=== PATIENT | female | born 1985 | race Caucasian/White ===

== ENCOUNTER → 2021-11-19 | Outpatient (CLI) | payer BC, OTHER ==
[~2021-11-19] MED LIST: ASPIRIN 81M81 MG/TA2 PO; DICLEGIS PO; MACROBID 1100 MG/CAP PO; PRENATAL TABLET PO
== END ==
LOC: COL.RAD 11:25
DX: O26.893 Other specified pregnancy related conditions, third trimester (principal); R10.9 Unspecified abdominal pain; Z3A.36 36 weeks gestation of pregnancy

== ENCOUNTER 2021-11-23 13:28 | Outpatient (CLI) | payer BC, OTHER ==
[~2021-11-23] VITALS: Ht 170.2 cm; Wt 97.3 kg
--- NOTE | 2021-11-23 13:35 | NUR ---
PT TO UNIT C/O DECREASED MOVEMENT. APPEARS ANXIOUS AND TEARFUL. ALSO STATES SHE IS CURRENTLY DOING A "24 HOUR URINE" TO ADDRESS HIGH BLOOD PRESSURE LATELY. EFM TRACING CATEGORY 1 STRIP WITH ACCELERATIONS NOTED. NO DECELERATIONS NOTED. FHR BASELINE 150'S. VITAL SIGNS STABLE. PT DENIES LEAKING OF FLUID OR CONTRACTIONS. SEE PHYS NOTIFICATION.
[2021-11-23 14:10] VITALS: BP 147/84; PULSE 96; TEMP 98.2
== END 2021-11-23 14:15 | disposition home or self-care (01) ==
LOC: LDRO 13:28 → LDR 13:40 → LDRO 14:15
DX: O36.8130 Decreased fetal movements, third trimester, not applicable or unspecified (principal); Z3A.36 36 weeks gestation of pregnancy

== ENCOUNTER 2021-11-24 13:23 | Outpatient (CLI) | payer BC, OTHER ==
[~2021-11-24] VITALS: Ht 170.2 cm; Wt 102.3 kg
[2021-11-24 13:30] VITALS: BP 128/97; PULSE 124; TEMP 98.1
[2021-11-24 14:10] VITALS: BP 117/59; PULSE 83
--- NOTE | 2021-11-24 14:16 | NUR ---
1329 PATIENT HERE FOR COMPLAINTS OF HEADACHE AND FEELING BAD. EFM ON FHT 145 BABY VERY ACTIVE. NO CONTRACTIONS. BP 128/97 WAS JUST AT OFFICE THIS MORNING. LABS DONE THIS AM. PATIENT RESTS ON LEFT SIDE. 1340 BP 114/74 1345 BP 111/64
--- NOTE | 2021-11-24 14:23 | NUR ---
1410 BP 117/[address] WINSTON CALLED AND UPDATED. ALL BP CALLED. ORDERS TO DISMISS TO HOME TO FOLLOW UP WITH DR. MIMS. VERBAL UNDERSTANDING NOTED.
[2021-11-25] MEDS ORDERED: NORMODYNE100 MG PO (11:48)
[2021-11-25] MEDS ORDERED: TYLENOL 500MG500 MG PO (11:50)
== END 2021-11-24 14:15 | disposition home or self-care (01) ==
LOC: LDRO 13:23 → LDR 13:40 → LDRO 14:15
DX: O62.9 Abnormality of forces of labor, unspecified (principal); Z3A.37 37 weeks gestation of pregnancy
CPT/HCPCS: OP

== ENCOUNTER 2021-11-25 11:22 | Outpatient (CLI) | payer BC, OTHER ==
[2021-11-25] VITALS (7 sets, daily range): BP systolic 112–141; BP diastolic 72–89; PULSE 75–120; TEMP 97.1
[~2021-11-25] VITALS: Ht 170.2 cm; Wt 102.3 kg
--- NOTE | 2021-11-25 11:30 | NUR ---
1130-Patient to L&D with complaints of elevated BP through the night 150/96 and 147/56 at 1100 this AM. Reports "mild" headach rates 5/10 and has treated with 500mg Tylenol. Reports "wavy" vision this AM and swelling to hands and feet "about the same in feet but hands are more sore from swelling from elbows down." +2 edema assessed in feet no obvious swelling in hands per this RN. Assessment complete. VSS BP on admission 138/89 and at 1150 125/73. 1200-Dr. Cardenas on unit for [facility]. Notified of patients arrival and orders to monitor BP's and baby for now.
[2021-11-25] MEDS ORDERED: NORMODYNE100 MG PO (11:48)
[2021-11-25] MEDS ORDERED: TYLENOL 500MG500 MG PO (11:50)
--- NOTE | 2021-11-25 12:15 | NUR ---
1215-300ml Clear emesis, Patient reports " this is normal for me. I am nauseated daily with emesis every other day throughout ."
--- NOTE | 2021-11-25 13:30 | NUR ---
1330-Reviwed BP and all labs in office 11/24/[address] Cardenas. Reactive FHR. Orders from MD patient may DC home with instructions to keep apt for follow up in offifce in AM. Tovat off EFM. 1345-Reviewed discharge instructions with patient. Ambulatory off Unit.
== END 2021-11-25 13:45 | disposition home or self-care (01) ==
LOC: LDRO 11:22 → LDR 11:30 → LDRO 13:45
DX: Z34.93 Encounter for supervision of normal pregnancy, unspecified, third trimester (principal); Z3A.37 37 weeks gestation of pregnancy

== ENCOUNTER 2021-11-26 13:51 | Inpatient (IN) | payer BC, OTHER ==
[~2021-11-26] VITALS: Ht 170.2 cm; Wt 102.9 kg
[2021-11-26] VITALS (8 sets, daily range): BP systolic 105–142; BP diastolic 59–76; PULSE 80–95; TEMP 97.5–98.1
[~2021-11-26 13:51] MED LIST changes: +NORMODYNE100 MG PO; +TYLENOL 500MG500 MG PO
--- NOTE | 2021-11-26 15:20 | NUR ---
PT AMBULATORY TO UNIT FOR SCHEDULE PRIMARY CSECTION. PT DENIES LEAKING OF FLUID, DENIES CONTRACTIONS, AND REPORTS POSITIVE MOVEMENT. PLACED ON EFM/TOCO UPON ARRIVAL. TRACING CATEGORY 1 STRIP WITH ACCELERATIONS AND NO DECELERATIONS NOTED. FHR BASELINE 135. PT'S VITAL SIGNS STABLE. EDUCATED ON PLAN OF CARE. CONSENTS SIGNED. IV TO LEFT HAND WITH LR INFUSING PER PROTOCOL. PT DENIES FURTHER QUESTIONS OR CONCERNS UPON ADMISSION ASSESSMENT AND CSECTION PREPARATION.
[2021-11-26 16:07] LABS: BASO % 0.1 % (0.0-2.0); EOS # 0.1 K/mm3 (0.0-0.7); EOS % 0.9 % (0.0-4.0); GRAN # 6.1 K/mm3 (1.4-6.5); HEMOGLOBIN 12.5 g/dl (12.5-16.0); LYMPH # 1.9 K/mm3 (1.2-3.4); LYMPH % 21.6 % (20.0-51.0); MEAN CELL VOLUME 91 fl (80.0-100.0); MEAN CORPUSCULAR HEMOGLOBIN 32 pg (27-31); MEAN CORPUSCULAR HGB CONC 35 g/dl (33.0-37.0); MEAN PLATELET VOLUME 12.6 fl (7.4-10.4); MONO # 0.6 K/mm3 (0.1-0.6); MONO % 7.1 % (1.7-9.3); PLATELET COUNT 128 K/mm3 (130-400); RED BLOOD COUNT 3.92 M/mm3 (4.10-5.30); REDCELL DISTRIBUTION WIDTH-CV 13.2 % (11.5-14.5)
[2021-11-26 16:11] LABS: HEMATOCRIT 35.5 % (37.0-47.0)
--- NOTE | 2021-11-26 17:55 | NUR ---
PT TO PACU FOLLOWING PRIMARY SECTION DELIVERY OF VIABLE FEMALE PER / ASSIST AT THIS TIME. EBL 400CC DURING SURGERY. LOCHIA SCANT AT THIS TIME WITH NO CLOTS NOTED. FUNDUS FIRM AT UMBILICUS. MAMI CARE PROVIDED. VITAL SIGNS STABLE. PT ALERT AND TALKATIVE. DENIES PAINS OR NEEDS AT THIS TIME. 1825: PT TO [facility] IN STABLE CONDITION AT THIS TIME. LOCHIA REMAINS SCANT, FUNDUS FIRM AT UMBILICUS, AND VITAL SIGNS STABLE.
--- NOTE | 2021-11-26 18:30 | NUR ---
BEDSIDE NURSE TO NURSE REPORT PROVIDED TO ALEX HUDSON AT THIS TIME.
[2021-11-26 22:15] LABS: ALBUMIN 2.8 gm/dL (3.5-5.0); BILIRUBIN,TOTAL 0.2 mg/dL (0.2-1.2); CALCIUM 9.2 mg/dL (8.4-10.2); CREATININE, serum 0.64 mg/dL (0.57-1.11); POTASSIUM 3.9 mmol/L (3.5-4.5); TOTAL PROTEIN 6.1 gm/dL (6.2-8.1)
[2021-11-27 02:30] VITALS: BP 121/68; PULSE 80
[2021-11-27 05:31] LABS: BASO % 0.1 % (0.0-2.0); GRAN # 12.2 K/mm3 (1.4-6.5); HEMOGLOBIN 12.1 g/dl (12.5-16.0); LYMPH # 1.2 K/mm3 (1.2-3.4); LYMPH % 8.4 % (20.0-51.0); MEAN CELL VOLUME 93 fl (80.0-100.0); MEAN CORPUSCULAR HEMOGLOBIN 31 pg (27-31); MEAN CORPUSCULAR HGB CONC 34 g/dl (33.0-37.0); MEAN PLATELET VOLUME 12.8 fl (7.4-10.4); MONO # 0.4 K/mm3 (0.1-0.6); PLATELET COUNT 115 K/mm3 (130-400); RED BLOOD COUNT 3.88 M/mm3 (4.10-5.30); REDCELL DISTRIBUTION WIDTH-CV 13.2 % (11.5-14.5)
[2021-11-27 05:37] LABS: HEMATOCRIT 36.1 % (37.0-47.0)
[2021-11-27 08:12] VITALS: BP 120/70; PULSE 76; TEMP 97
--- NOTE | 2021-11-27 09:33 | NUR ---
Initial visit attempt; Nurse with patient, [employer] left card of congratulations and God's blessings for the of her daughter and information regarding the availability of spiritual care at our hospital.
[2021-11-27 17:27] VITALS: BP 124/68; PULSE 76; TEMP 98.4
[2021-11-27 22:00] VITALS: BP 120/79; PULSE 100; TEMP 98.5
[2021-11-28 09:30] VITALS: BP 134/71; PULSE 73; TEMP 97.9
[2021-11-28] MEDS ORDERED: PERCOCET 325 MG1 TA2 PO (12:36)
[2021-11-28] MEDS ORDERED: IBU600 MG PO (12:36)
[2021-11-28 17:29] VITALS: BP 144/80
[2021-11-29 08:14] VITALS: BP 139/82; PULSE 76; TEMP 97.8
--- NOTE | 2021-11-29 15:00 | NUR ---
1515-Reviewed discharge instructions and need to follow up at 2 and 6 week apt. Denies questions verbalizes understanding. Updated on Border status and discharged.
== END 2021-11-29 15:15 | disposition home or self-care (01) | DRG 788 ==
LOC: OB 13:51
PROVIDERS: ADMIT Obstetrics & Gynecology
PROC: 10D00Z1 Extraction of Products of Conception, Low, Open Approach (ICD-10-PCS; principal; 2021-11-26)
DX: O14.04 Mild to moderate pre-eclampsia, complicating childbirth (principal); Z37.0 Single live birth; O99.52 Diseases of the respiratory system complicating childbirth; J45.909 Unspecified asthma, uncomplicated; O69.81X0 Labor and delivery complicated by cord around neck, without compression, not applicable or unspecified; O99.62 Diseases of the digestive system complicating childbirth; K21.9 Gastro-esophageal reflux disease without esophagitis; Z3A.37 37 weeks gestation of pregnancy
CPT/HCPCS: J0171; J0690; J1100; J1885; J2370; J2405; J2590; J7120